=== PATIENT | female | born 2000 | race Caucasian/White ===

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

== ENCOUNTER → 2018-03-22 | Outpatient (CLI) | payer BC ==
[~2018-03-22] MED LIST: IOHEXOL 240 MG/ML 50ML VIAL. PO ONE; IOHEXOL 300 MG/ML 75 ML VIAL. IV ONE; ONDA4TAB10 SL
--- NOTE | 2018-03-22 16:22 | RAD ---
CT Abdomen and Pelvis With Intravenous Contrast: History: Right lower quadrant pain. Nausea and vomiting. Fever today. Comparison: None. Technique: After administration of oral and intravenous contrast, 75 mL Omnipaque-300, CT of the abdomen and pelvis was performed. Exposure: One or more of the following individualized dose reduction techniques were utilized for this examination: 1. Automated exposure control 2. Adjustment of the mA and/or kV according to patient size 3. Use of iterative reconstruction technique Findings: Liver, spleen, pancreas, and bilateral adrenal glands are unremarkable. Gallbladder is absent. Bilateral kidneys enhance symmetrically. No bowel obstruction or inflammation is seen. Appendix is without evidence of. Urinary bladder is unremarkable. Small amount of free fluid is present in the pelvis, within physiologic limits. No free air is identified. Intrauterine device is seen. Uterus and adnexa have otherwise unremarkable CT appearance. Minimal grade 1 spondylolisthesis is seen at L5-S1 secondary to bilateral L5 pars defects. Impression: 1. No acute abnormality identified in the abdomen or pelvis. Electronically signed by: Jn Newman MD (03/22/2018 4:18 PM) [facility]
== END | disposition home or self-care (01) ==
LOC: CT 14:29
PROVIDERS: ATTEND Family Medicine
DX: M43.17 Spondylolisthesis, lumbosacral region (principal); Z88.1 Allergy status to other antibiotic agents
CPT/HCPCS: 74177; Q9966; Q9967

== ENCOUNTER → 2018-07-12 | Outpatient (CLI) | payer BC ==
[~2018-07-12] MED LIST changes: -IOHEXOL 240 MG/ML 50ML VIAL. PO ONE; -IOHEXOL 300 MG/ML 75 ML VIAL. IV ONE
--- NOTE | 2018-07-12 16:21 | RAD ---
Examination: Ultrasound pelvis. HISTORY: History of pelvic pain. COMPARISON: None available. FINDINGS: The uterus measures 6.7 x 4.9 x 2.8 cm. The right ovary measures 3.3 x 1.6 x 2.9 cm. The left ovary measures 2.6 x 2.1 x 2.9 cm. Multiple cystic structures identified in the bilateral ovaries likely follicles cysts. Intrauterine contraceptive device is identified in the endometrium. Small amount of free fluid identified in the cul-de-sac. Tiny amount of fluid identified in the cervical canal. Blood flow identified in the right and left ovaries. IMPRESSION: 1. Cystic structures identified in the bilateral ovaries likely follicular cysts. 2. Small amount of free fluid identified in the pelvis. 3. Linear echogenicity identified in the endometrium likely intrauterine contraceptive device. Electronically signed by: Kj Lion MD (07/12/2018 4:17 PM) [place] [id number]
== END | disposition home or self-care (01) ==
LOC: US 14:50
PROVIDERS: ATTEND Physician Assistant
DX: N89.8 Other specified noninflammatory disorders of vagina (principal); R10.2 Pelvic and perineal pain
CPT/HCPCS: 76830; 76856

== ENCOUNTER 2019-12-01 05:28 | Emergency (ER) | payer BC ==
[~2019-12-01] VITALS: Ht 167.6 cm; Wt 52.2 kg
--- NOTE | 2019-12-01 05:32 | PHYS DOC ---
Past History Past Medical History: No Pertinent History, Anxiety, Depression Past Medical History cyclic vomiting (MIRIAN HAMMOND MD) Past Surgical History: Cholecystectomy (MIRIAN HAMMOND MD) Smoking: Non-smoker Alcohol Use: None Drug Use: None (MIRIAN HAMMOND MD) General Adult HPI: HPI: ".. I have anxiety... but I get anxious...and when I start vomiting... I can't stop.. the anxiety seems to have gotten worse in college.. 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 I have cut myself in the past.. not suicidal.. 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 Pt. denies history of ill contacts. No recent travel outside of [facility]. Patient originally from [facility]. Patient has had long history of anxiety since a teenager and did self cut for emotional release. Patient has been following with Dr Kiser. . (MIRIAN HAMMOND MD) Review of Systems: Review of Systems: Constitutional: Denies fever or chills Eyes: Denies change in visual acuity HENT: Denies nasal congestion or sore throat Respiratory: Denies cough or shortness of breath Cardiovascular: Denies chest pain or edema GI: Denies abdominal pain, nausea, vomiting, bloody stools or diarrhea : Denies dysuria Musculoskeletal: Denies back pain or joint pain Integument: Denies rash Neurologic: Denies headache, focal weakness or sensory changes Endocrine: Denies polyuria or polydipsia Lymphatic: Denies swollen glands Psychiatric: Denies depression or anxiety (MIRIAN HAMMOND MD) Heart Score: Risk Factors: Risk Factors: DM, Current or recent (<one month) smoker, HTN, HLP, family history of CAD, obesity. Risk Scores: Score 0 - 3: 2.5% MACE over next 6 weeks - Discharge Home Score 4 - 6: 20.3% MACE over next 6 weeks - Admit for Clinical Observation Score 7 - 10: 72.7% MACE over next 6 weeks - Early Invasive Strategies (MIRIAN HAMMOND MD) Family History: Family History: Non-contributory, (MIRIAN HAMMOND MD) Current Medications: Current Meds: See Nursing (MIRIAN HAMMOND MD) Allergies: Allergies: Allergies Coded Allergies Type Severity Reaction Last Updated Verified amoxicillin Allergy Unknown 03/02/17 Yes hydrocodone Allergy Unknown 03/22/18 Yes (MIRIAN HAMMOND MD) Physical Exam: PE: Constitutional: Well developed, well nourished, acute emotional distress, non- toxic appearance. [] HENT: Normocephalic, atraumatic, bilateral external ears normal, oropharynx moist, no oral exudates, nose normal. [] Eyes: PERRLA, EOMI, conjunctiva normal, no discharge. [] Neck: Normal range of motion, no tenderness, supple, no stridor. [] Cardiovascular:Heart rate regular rhythm, no murmur [] Lungs & Thorax: Bilateral breath sounds clear to auscultation [] Abdomen: Bowel sounds hyperactive, soft, mild epigastric tenderness, no masses, no pulsatile masses. [] No focal rebound. Skin: Warm, dry, no erythema, no rash. [] Back: No tenderness, no CVA tenderness. [] Extremities: No tenderness, no cyanosis, no clubbing, ROM intact, no edema. [] No psoas sign. Neurologic: Alert and oriented X 3, normal motor function, normal sensory function, no focal deficits noted. [] Psychologic: Affect anxious, , judgement normal, mood normal. [] (MIRIAN HAMMOND MD) EKG: EKG: [] (MIRIAN HAMMOND MD) Radiology/Procedures: Radiology/Procedures: [] (MIRIAN HAMMOND MD) Course & Med Decision Making: Course & Med Decision Making Pertinent Labs and Imaging studies reviewed. (See chart for details) Pt. endorse to Dr. Sawyer. Impression: 1. Nausea And Vomiting 2. Hx. of Anxiety Disorder [] (MIRIAN HAMMOND MD) Russell Disclaimer: Russell Disclaimer: This electronic medical record was generated, in whole or in part, using a voice recognition dictation system. (MIRIAN HAMMOND MD) Departure Departure: Impression: Primary Impression: Cannabinoid hyperemesis syndrome Additional Impression: Anxiety Disposition: 01 HOME/RESIDENCE PRIOR TO ADM Condition: STABLE Referrals: KESHAWN KISER MD (PCP) Patient Instructions: Anxiety and Panic Attacks, Cyclic Vomiting Syndrome, Marijuana Abuse and Chemical Dependency, Nausea and Vomiting Scripts Metoclopramide Hcl (REGLAN) 10 Mg Tablet 1 TAB PO TID PRN for NAUSEA/VOMITING for 5 Days, #15 TAB 0 Refills before food and bedtime Prov: PEE SAWYER Jr., DO 12/01/19 MIRIAN HAMMOND MD Dec 01, 2019 05:32 PEE SAWYER Jr., DO Dec 01, 2019 07:04
[2019-12-01] MEDS ORDERED: PARO10TA57 PO (05:44)
[2019-12-01] MEDS ORDERED: IV RINGERS SOLUTION,LACTATED 1,000 ML IV SCH (06:00)
[2019-12-01] MEDS ORDERED: ONDANSETRON PF 4 MG/2 ML VIAL. IVP ONE (06:00)
[2019-12-01] MEDS ORDERED: FAMOTIDINE 20 MG/2 ML VIAL IVP ONE (06:00)
[2019-12-01 06:29] LABS: BASO % 0 % (0-3); EOS % 0 % (0-3); HEMATOCRIT 40.9 % (36.0-47.0); HEMOGLOBIN 14.3 g/dL (12.0-15.5); LYMPH # 0.6 x10^3/uL (1.0-4.8); LYMPH % 10 % (24-48); MEAN CORPUSCULAR HEMOGLOBIN 33 pg (25-35); MEAN CORPUSCULAR HGB CONC 35 g/dL (31-37); MEAN CORPUSCULAR VOLUME 96 fL (79-100); MONO # 0.2 x10^3/uL (0.0-1.1); MONO % 5 % (0-9); NEUT # 4.8 x10^3uL (1.8-7.7); NEUT % 85 % (31-73); PLATELET COUNT 155 x10^3/uL (140-400); RED BLOOD COUNT 4.27 x10^6/uL (3.50-5.40); RED CELL DISTRIBUTION WIDTH 12.9 % (11.5-14.5); WHITE BLOOD COUNT 5.6 x10^3/uL (4.0-11.0)
[2019-12-01 06:37] LABS: CALCIUM 9.3 mg/dL (8.5-10.1); CREATININE 0.8 mg/dL (0.6-1.0); GFR 90.5; POTASSIUM 3.4 mmol/L (3.5-5.1)
[2019-12-01 06:44] LABS: BILIRUBIN,URINE NEG (NEG); CLARITY,URINE HAZY; COLOR,URINE YELLOW; GLUCOSE,URINE NEG (NEG)
[2019-12-01 06:44] LABS: ALBUMIN 4.7 g/dL (3.4-5.0); DIRECT BILIRUBIN 0.2 mg/dL (0.0-0.2); TOTAL BILIRUBIN 0.8 mg/dL (0.2-1.0); TOTAL PROTEIN 7.6 g/dL (6.4-8.2)
[2019-12-01 06:45] LABS: BACTERIA,URINE MOD /HPF (0-FEW); NITRITE,URINE NEG (NEG); SQUAMOUS EPITHELIAL CELL,UR MOD /LPF; UROBILINOGEN,URINE 0.2 mg/dL (0.2 mg/dL)
[2019-12-01 06:47] LABS: BARBITURATES NEG (NEG); BENZODIAZEPINES NEG (NEG); CANNABINOIDS POS (NEG); COCAINE NEG (NEG); METHADONE NEG (NEG); OPIATES NEG (NEG); PHENCYCLIDINE NEG (NEG); U PREG PATIENT NEGATIVE (NEG)
[2019-12-01 06:53] LABS: AMPHETAMINE/METHAMPHETAMINE NEG (NEG)
[2019-12-01] MEDS ORDERED: METO10TA81 PO (07:03)
[2019-12-02 07:15] VITALS: BP 110/74
== END 2019-12-01 07:30 | disposition home or self-care (01) ==
LOC: ER 05:28
DX: F12.188 Cannabis abuse with other cannabis-induced disorder (principal); R11.2 Nausea with vomiting, unspecified; F41.9 Anxiety disorder, unspecified; Z88.1 Allergy status to other antibiotic agents; Z88.5 Allergy status to narcotic agent; Z90.49 Acquired absence of other specified parts of digestive tract
CPT/HCPCS: 36415; 80048; 80076; 80307; 81001; 81025; 82150; 82550; 83690; 84484; 85025; 85610; 85730; 87086; 96361; 96374; 96375; 99284; J2405; J3490; J7120; 99285-25